=== PATIENT | female | born 2000 | race Caucasian/White ===

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

== ENCOUNTER 2021-01-28 15:03 | Emergency (ER) | payer MEDICAID ==
[~2021-01-28] VITALS: Ht 165.1 cm; Wt 52.7 kg
[2021-01-28 15:51] LABS: BASOPHILS % (AUTO) 0.7 % (0-1); EOSINOPHILS # (AUTO) 0.1 X10'3 (0-0.9); EOSINOPHILS % (AUTO) 2.6 % (0-6); HEMATOCRIT 36.9 % (35.0-45.0); HEMOGLOBIN 12.4 g/dl (12.0-16.0); LYMPHOCYTES # (AUTO) 1.4 X10'3 (1.1-4.8); LYMPHOCYTES % (AUTO) 29.7 % (21-51); MEAN CORPUSCULAR HEMOGLOBIN 31.6 PG (27.0-31.0); MEAN CORPUSCULAR HGB CONC 33.6 g/dL (33.0-36.5); MEAN CORPUSCULAR VOLUME 94.1 FL (78-98); MONOCYTES # (AUTO) 0.5 X10'3 (0-0.9); MONOCYTES % (AUTO) 9.5 % (2-12); NEUTROPHILS # (AUTO) 2.7 X10'3 (1.8-7.7); NEUTROPHILS % (AUTO) 57.5 % (42-75); PLATELET COUNT 249 X10'3 (140-440); RED BLOOD COUNT 3.93 X10'6 (4.20-5.60); RED CELL DISTRIBUTION WIDTH 13.5 % (11.5-14.5); WHITE BLOOD COUNT 4.8 X10'3 (4.5-11.0)
[2021-01-28 15:53] LABS: UA COLLECTION TYPE CLN CATCH MIDSTREAM
[2021-01-28 15:54] LABS: CLARITY,URINE CLOUDY (Clear); COLOR,URINE YELLOW (Yellow); GLUCOSE, URINE NEGATIVE (Neg); KETONES,URINE NEGATIVE (Neg); LEUKOCYTE ESTERASE ,URINE NEGATIVE (Neg); NITRITES, URINE NEGATIVE (Neg); OCCULT BLOOD,URINE NEGATIVE (Neg); PH,URINE 7.5 (4.8-8.0); PROTEIN,URINE NEGATIVE (Neg); URINE HCG NEGATIVE (NEG); UROBILINOGEN,URINE 0.2 E.U/dL (0.2-1.0)
[2021-01-28 15:57] LABS: AMORPHOUS PHOSPHATES 3+
[2021-01-28 15:59] LABS: BACTERIA,URINE NONE SEEN /HPF (Neg); MUCUS STRANDS NONE SEEN /LPF (Neg); RBC,URINE NONE SEEN /HPF (0-2); SQUAMOUS EPITHELIAL CELL,UR MODERATE /LPF (FEW); WBC,URINE 0-4 /HPF (0-4)
[2021-01-28 16:08] LABS: ALANINE AMINOTRANSFERASE 17 U/L (12-78); ALBUMIN 4.2 G/DL (3.4-5.0); ALBUMIN/GLOBULIN RATIO 1.6 (1.1-1.5); ALKALINE PHOSPHATASE 65 IU/L (20-180); ANION GAP 7 (8-16); ASPARTATE AMINO TRANSFERASE 10 U/L (10-37); BILIRUBIN,TOTAL 0.3 MG/DL (0.1-1.0); BLOOD UREA NITROGEN 11 MG/DL (7-18); CALCIUM 8.9 MG/DL (8.5-10.1); CHLORIDE 107 MMOL/L (99-107); CREATININE 0.58 MG/DL (0.40-0.90); GLUCOSE 82 MG/DL (70-104); SODIUM 142 MMOL/L (135-145); TOTAL PROTEIN 6.8 G/DL (6.4-8.2); eGFR > 90 ML/MIN
[2021-01-28 16:22] LABS: TROPONIN I < 0.04 NG/ML (0.0-0.05)
[2021-01-28 16:45] VITALS: BP 93/60
== END 2021-01-28 16:54 | disposition home or self-care (01) ==
LOC: ER 15:04
DX: R42 Dizziness and giddiness (principal); F41.9 Anxiety disorder, unspecified; Z98.890 Other specified postprocedural states
CPT/HCPCS: 36415; 80053; 81001; 81025; 84484; 85025; 99281; 99283

== ENCOUNTER 2022-02-23 15:16 | Emergency (ER) | payer MEDICAID ==
[~2022-02-23] VITALS: Ht 165.1 cm; Wt 50.0 kg
[2022-02-23 15:19] VITALS: BP 101/67
[2022-02-23] MEDS ORDERED: LIDOcaine 1% 30ml preserv. free vial IJ STA (17:27)
[2022-02-23] MEDS ORDERED: cephalexin 250 MG/5 ML oral suspension PO STA (17:27)
[2022-02-23] MEDS ORDERED: METR-159 PO (17:34)
== END 2022-02-23 18:44 | disposition home or self-care (01) ==
LOC: ER 15:17
DX: N75.0 Cyst of Bartholin's gland (principal)
CPT/HCPCS: 10060; 11760; 56420; 99283; 99284; A6449

== ENCOUNTER 2022-04-02 11:32 | Emergency (ER) | payer MEDICAID ==
[~2022-04-02] VITALS: Ht 170.2 cm; Wt 50.0 kg
[2022-04-02 12:21] VITALS: BP 100/61
[2022-04-02] MEDS ORDERED: LIDOcaine 1% W/epiNEPHrine 1:100,000 20ml vial SQ ONE (13:55)
[2022-04-02] MEDS ORDERED: LIDOcaine 1% w/EPI 1:100,000 30ml vial (MDV) SQ ONE (14:00)
[2022-04-02] MEDS ORDERED: AMOX-117 PO (14:37)
== END 2022-04-02 15:02 | disposition home or self-care (01) ==
LOC: ER 11:33
DX: N75.0 Cyst of Bartholin's gland (principal); F41.9 Anxiety disorder, unspecified
CPT/HCPCS: 56420; 99284